=== PATIENT | female | born 1960 | race Caucasian/White ===

== ENCOUNTER → 2023-09-05 06:34 | Day surgery (SDC) | payer MEDICARE, OTHER, SELFPAY | LOC: GI 06:34 | PROVIDERS: ATTENDING PHYSICIAN Specialist | DX: Z12.11 Encounter for screening for malignant neoplasm of colon (principal); D12.2 Benign neoplasm of ascending colon; D12.3 Benign neoplasm of transverse colon; K63.5 Polyp of colon; Z86.010 Personal history of colon polyps | CPT/HCPCS: 45380; 88305 ==

== ENCOUNTER → 2023-12-04 17:19 | Outpatient (REF) | payer MEDICARE, OTHER, SELFPAY | LOC: WDC 17:19 | PROVIDERS: ATTENDING PHYSICIAN Obstetrics & Gynecology; FAMILY PHYSICIAN Family Medicine | DX: Z12.31 Encounter for screening mammogram for malignant neoplasm of breast (principal) | CPT/HCPCS: 77063; 77067 ==

== ENCOUNTER → 2024-02-17 08:03 | Outpatient (REF) | payer MEDICARE, OTHER, SELFPAY | LOC: RAD 08:03 | PROVIDERS: ATTENDING PHYSICIAN Obstetrics & Gynecology; FAMILY PHYSICIAN Family Medicine | DX: Z78.0 Asymptomatic menopausal state (principal) | CPT/HCPCS: 77080 ==

== ENCOUNTER → 2024-03-05 10:16 | Outpatient (REF) | payer MEDICARE, OTHER, SELFPAY | LOC: HWRAD 10:16 | PROVIDERS: ATTENDING PHYSICIAN Family Medicine | DX: R06.83 Snoring (principal); R05.3 Chronic cough | CPT/HCPCS: 71046 ==

== ENCOUNTER 2024-03-20 11:53 | Emergency (ER) | payer MEDICARE, OTHER, SELFPAY ==
[2024-03-20 12:19] VITALS: BP 127/78
[2024-03-20 14:56] LABS: Urine Albumin Negative (Neg - Trace); Urine Bilirubin Negative (Negative); Urine Character Clear (Clear); Urine Color Yellow; Urine Glucose Negative (Negative); Urine Ketone Negative (Negative); Urine Leukocyte Negative (Negative); Urine Nitrite Negative (Negative); Urine Occult Blood Negative (Negative); Urine Urobilinogen Negative (Neg - 1+)
--- NOTE | 2024-03-20 14:56 | ED.GENMED ---
History of Present Illness
General
Chief Complaint: Abdominal Pain
Source: patient
Exam Limitations: none
Time Seen by Provider: 03/20/24 13:57
Nursing documentation reviewed up to this point in time: agreed with
History of Present Illness
History of Present Illness:
pt is a 64 y/o F with no chronic pmh
hre with a few days of lower abd pain that was mild, slightly right sided and in her low back as well
the pain got sharp last night and then was worse today in the RLQ
she went to her PCP and was sent in for CT
she has not had fever, chills, nausea, vomiting, diarrhea, urinary symptoms
pt's urine was checked at PCP office and was trace LE
no pain meds
Past History
Past History
ED Past Medical History: None
ED Past Surgical History: Tonsilectomy
Social History
Tobacco: Non-smoker
Alcohol: None
Drug: None
Personal:
Living: with roommate
Employment: Employed
Family History
Family History: Negative Diabetes, Hypertension or CAD
Review of Systems
Review of Systems
Allergies reviewed?: Yes
All Other Systems: Not applicable
Phy Exam
Physical Exam
Physical Exam:
GENERAL: Alert , in no apparent distress
EYE: pupils equal and reactive
NECK: Supple
ENT: o/p clr, mmm.
CARDIAC: Regular rate and rhythm .
LUNGS: Clear breath sounds bilaterally, no acute respiratory distress, no wheezes/rales/rhonchi
ABDOMEN: Soft, moderate right lower quadrant tenderness no guarding or rebound, no cvat, normal bowel sounds
NEUROLOGICAL: Alert and oriented, no focal neuro deficits
SKIN: Warm and dry, skin intact.
MUSCULOSKELETAL: No edema, well perfused.
PSYCH: Normal and appropriate interaction.
Course
Orders/Labs/Results
Orders:
Orders
03/20/24 14:34
Complete Blood Count/With Diff Urgent
Comprehensive Metabolic Panel Urgent
Lactic Acid Urgent
Lipase Urgent
Urinalysis Reflex To Culture Urgent
Date Specimen was Collected: 03/20/24
Time Specimen was Collected: 14:27
03/20/24 14:43
CT Abd/Pel (IV only)-DH only Urgent
Comment:
Reason For Exam: RLQ pain x 3 days
Morphine Sulfate 4 mg IV NOW STA
Ondansetron Injectable [Zofran] 4 mg IV NOW STA
03/20/24 18:16
Ketorolac [Toradol] 15 mg IV NOW STA
03/20/24 18:38
Acetaminophen [Tylenol] 1,000 mg PO NOW STA
Abnormal Lab Results
03/20/24
14:34
WBC 13.5 H 10^3/uL
(4.8-10.8)
Absolute Neuts (auto) 10.2 H 10^3/uL
(1.4-6.5)
Neutrophils % 75.8 H %
(42.2-75.2)
Lymphocytes % 18.1 L %
(20.5-51.1)
Carbon Dioxide 31 H mmol/L
(22-30)
Lactic Acid 0.6 L mmol/L
(0.7-2.0)
Lipase 19 L U/L
(23-300)
03/20/24 14:34
03/20/24 14:34
Vital Signs
Initial and Last Documented VS:
Initial Vital Signs
Temp Pulse Resp BP Pulse Ox
36.6 C 66 20 127/78 97
03/20/24 12:19 03/20/24 12:19 03/20/24 12:19 03/20/24 12:19 03/20/24 12:19
Last Documented Vital Signs
Temp Pulse Resp BP Pulse Ox
36.6 C 59 18 118/62 97
03/20/24 12:19 03/20/24 18:17 03/20/24 18:17 03/20/24 18:17 03/20/24 18:17
MDM/Problems Addressed
Differential Diagnosis Includes:
APPENDICITIS, DIVERTICULITIS, CONSTIPATION, early shingles, msk
MDM/Problems Addressed:
oracio kunz 64 y/o F with no chronic medical problems
has had 2-3 days back and lower abd pain, seemed more R sided than left but has been shooting across her abdomen; no other symptoms
mild to mod tenderness RLQ
afebrile
wbc 13
cr normal
ua neg
ct shows small 6 mm hemorrhagic cyst vs. RCC in the L kidney
the radiologist thinks more likely hemorrhagic cyst than cancer
eems unlikely to be cauing R sided lower abd pain
for now, d/c nicole
i notified urologist who recommended outpatient fu
but also her PCP as well via [facility] text
tylenol, return preautions, watch for rash
*Critical Care Note
Total Time (30-74mins, 75-104mins- exclusive of procedures): Not Applicable
ED Attending Note
-
Portions of this chart may have been created with voice recognition software.� Occasional wrong word or��sound alike� substitutions may have occurred due to the inherent limitations of voice recognition software.
Discharge Plan
Departure
Patient Disposition: Home (Routine Discharge)
Date of Disposition: 03/20/24
Time of Disposition: 18:38
Patient with high blood pressure during this ER visit?: No
Condition: Fair
Covid-19: Not Applicable
Discharge Problem:
Abdominal pain
Instructions: Abdominal Pain
Prescriptions:
No Action
multivitamin [Daily Multi-Vitamin] 1 EACH tablet
1 ea PO DAILY
ascorbic acid (vitamin C) [Vitamin C] 500 MG tablet
500 mg PO DAILY
fluoxetine 10 MG capsule
10 mg PO DAILY
Referrals:
Boubacar Magana MD [Active] - Follow up in 5-7 days (urology)
Gary Tolliver MD [Family Provider] - Follow up in 2-3 days
Activity Restrictions/Additional Instructions:
YOUR CAT SCAN SHOWED SOME INCIDENTAL FINDINGS PROBABLY UNLIKELY TO CAUSE YOUR SYPMTOMS:
UTERINE FIBROID
L OVARIAN CYST
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
FATTY LIVER
AND A 6 MM L KIDNEY CYST THAT LOOKS HEMORRHAGIC; IT CAN CAUSE PAIN BUT UNLIKELY ON THE R SIDE OF THE ABDOMEN
IT DOES NEED FOLLOW UP TO ENSURE IT IS NOT A CANCER
CALL UROLOGIST TO SCHEDULE FOLLOW UP
INT HE MEANTIME, TRY TYLENOL FOR PAIN, HEATING PAD
RETURN FOR WORSENING PAIN, FEVER, RASH, BLOODY URINE, VOMITING, WEAKNESS,E TC.
Interventions
Interventions:
*Risk Screen - Suicide Last Done: 03/20/24 14:20
*General Assessment Last Done: 03/20/24 12:19
*Neglect/Abuse Screening Last Done: 03/20/24 14:20
ED- Fall Risk Assessment Last Done: 03/20/24 15:17
*ED COVID-19 Vaccine History Last Done: 03/20/24 14:19
*Nursing Disposition Last Done: 03/20/24 19:12
TL-Nxdgnr-Onvpkwihpx Assessment Last Done: 03/20/24 15:17
Discharge Date and Time
Discharge Date/Time: 03/20/24 19:12
Print Language: MACEDONIAN
[2024-03-20] MEDS: ZOFRAN 4 MG IV (15:00)
[2024-03-20] MEDS: MORPHINE SULFATE 4 MG IV (15:01)
[2024-03-20 15:02] LABS: Lactic Acid 0.6 mmol/L (0.7-2.0)
[2024-03-20 15:04] LABS: % Basophils 0.5 % (0-2); % Eosinophils 1.3 % (0-6); % Immature Granulocytes 0.3 % (0-0.5); % Lymphocytes 18.1 % (20.5-51.1); % Neutrophils 75.8 % (42.2-75.2); Absolute Basophils 0.1 10^3/uL (0-0.2); Absolute Eosinophils 0.2 10^3/uL (0-0.7); Absolute Lymphocytes 2.4 10^3/uL (1.2-3.4); Absolute Monocytes 0.5 10^3/uL (0.1-0.6); Absolute Neutrophils 10.2 10^3/uL (1.4-6.5); Hematocrit 41.3 % (37.0-47.0); Hemoglobin 13.7 g/dL (12.0-16.0); Mean Corp Hgb Conc. 33.2 g/dL (33.0-37.0); Mean Corpuscular Hgb 29.8 pg (27.0-31.0); Mean Platelet Volume 9.8 fL (7.4-10.4); Nucleated Red Blood Cells % 0 %; Platelet Count 328 10^3/uL (130-400); Red Blood Cell Count 4.59 10^6/uL (4.20-5.40); Red Cell Dist. Width 12.4 % (11.5-14.5); White Blood Cell Count 13.5 10^3/uL (4.8-10.8)
[2024-03-20 15:06] VITALS: BP 125/66
[2024-03-20 15:09] LABS: ALT (SGPT) 21 U/L (0-35); Albumin 4.4 g/dl (3.5-5.0); Alkaline Phosphatase 95 U/L (38-126); Blood Urea Nitrogen 16 mg/dl (7-17); Calcium 9.8 mg/dl (8.4-10.2); Carbon Dioxide 31 mmol/L (22-30); Chloride 100 mmol/L (98-107); Glucose 96 mg/dl (70-99); Lipase 19 U/L (23-300); Potassium 4.1 mmol/L (3.5-5.1); Sodium 139 mmol/L (135-145); Total Bilirubin 0.6 mg/dl (0.2-1.3); eGFR > 60.00
[2024-03-20 15:54] LABS: AST (SGOT) 22 U/L (14-36)
[2024-03-20 18:17] VITALS: BP 118/62
== END 2024-03-20 19:12 | disposition home or self-care (01) ==
LOC: EMR 11:53
PROVIDERS: Physician Assistant; EMERGENCY PHYSICIAN Emergency Medicine; FAMILY PHYSICIAN Family Medicine
DX: R10.31 Right lower quadrant pain (principal)
CPT/HCPCS: 99285; 96374; 96375 ×2; 74177; 80053; 81003; 83605; 83690; 85025; Q9967

== ENCOUNTER → 2024-05-08 14:01 | Outpatient (REF) | payer MEDICARE, OTHER, SELFPAY | LOC: DHSLP 14:01 | PROVIDERS: ATTENDING PHYSICIAN Internal Medicine Critical Care Medicine; FAMILY PHYSICIAN Family Medicine | DX: G47.33 Obstructive sleep apnea (adult) (pediatric) (principal) | CPT/HCPCS: 95800 ==

== ENCOUNTER → 2024-12-08 06:52 | Outpatient (REF) | payer MEDICARE, OTHER, SELFPAY | LOC: WDC 06:52 | PROVIDERS: ATTENDING PHYSICIAN Obstetrics & Gynecology; FAMILY PHYSICIAN Family Medicine | DX: Z12.31 Encounter for screening mammogram for malignant neoplasm of breast (principal) | CPT/HCPCS: 77063; 77067 ==

== ENCOUNTER → 2025-01-05 06:45 | Outpatient (REF) | payer MEDICARE, OTHER, SELFPAY | LOC: RAD 06:45 | PROVIDERS: ATTENDING PHYSICIAN Specialist; FAMILY PHYSICIAN Family Medicine | DX: N28.89 Other specified disorders of kidney and ureter (principal); N28.1 Cyst of kidney, acquired | CPT/HCPCS: 74170; Q9967 ==